=== PATIENT | female | born 1940 | race Caucasian/White ===

== ENCOUNTER → 2017-03-10 | Outpatient (CLI) | payer OTHER ==
[~2017-03-10] MED LIST: Adipex-P37.5 M1 PO; Calcium + Vita1 EACH PO; Crutch1 EACH MISC; FLONASE ALLERG9.9 ML; MULTI VITAMIN1 EACH PO; OMEP20ER PO; Percocet 5-3251 EACH PO; Pravastatin Sod80 MG PO; SERT50 PO; VALA500; Zanaflex4 M1 PO
[2017-03-10 13:50] LABS: BASOPHILS ABSOLUTE AUTO 0.04 K/mm3 (0.00-0.23); BASOPHILS PERCENT AUTO 1 % (0-2); EOSINOPHILS ABSOLUTE AUTO 0.03 K/mm3 (0.00-0.68); EOSINOPHILS PERCENT AUTO 1 % (0-6); Hematocrit 44.7 % (33.0-51.0); Hemoglobin 14.6 g/dL (11.5-16.0); IMMATURE GRAN ABSOLUTE AUTO 0.02 K/mm3 (0.00-0.10); IMMATURE GRAN PERCENT AUTO 0 % (0-1); LYMPHOCYTES ABSOLUTE AUTO 1.78 K/mm3 (0.84-5.20); LYMPHOCYTES PERCENT AUTO 33 % (21-46); MONOCYTES ABSOLUTE AUTO 0.43 K/mm3 (0.16-1.47); MONOCYTES PERCENT AUTO 8 % (4-13); Mean Corpuscular HGB 30.1 pg (26.0-34.0); Mean Corpuscular HGB Conc 32.7 g/dL (31.5-36.5); Mean Corpuscular Volume 92 fL (80-100); Mean Platelet Volume 10.1 fL (9.1-12.4); NEUTROPHILS ABSOLUTE AUTO 3.12 K/mm3 (1.96-9.15); NEUTROPHILS PERCENT AUTO 58 % (41-73); Platelet Count 346 K/mm3 (150-400); RDW Coefficient Variation 15.7 % (11.7-14.2); RDW Standard Deviation 52.2 fL (35.1-46.3); Red Blood Cell Count 4.85 M/mm3 (3.80-5.20); White Blood Cell Count 5.42 K/mm3 (4.00-11.30)
[2017-03-10 14:17] LABS: Alanine Aminotransfer (ALT/SGP 29 U/L (12-78); Albumin, Blood 3.7 g/dL (3.4-5.0); Albumin/Globulin Ratio 1.1 (0.8-1.8); Alk Phos 93 U/L (50-136); Anion Gap 9 mmol/L (6-16); Aspartate Aminotrans (AST/SGOT 18 U/L (12-37); Bilirubin, Total 0.7 mg/dL (0.1-1.0); Blood Urea Nitrogen 15 mg/dL (8-24); Bun/Creatinine Ratio 20.7 (12.0-20.0); CO2, Blood 24 mmol/L (21-32); Calcium, Blood 9.9 mg/dL (8.5-10.1); Chloride, Blood 111 mmol/L (98-108); Creatinine, Blood 0.73 mg/dL (0.40-1.00); Globulin, Blood 3.5 g/dL (2.2-4.0); Glomerular Filtration Rate >60 (60-); Glucose, Blood 109 mg/dL (70-99); Potassium, Blood 3.9 mmol/L (3.5-5.5); Sodium, Blood 144 mmol/L (136-145); Total Protein, Blood 7.2 g/dL (6.4-8.2)
== END ==
LOC: LAB SHORT 13:38
PROVIDERS: Internal Medicine Rheumatology
DX: M05.9 Rheumatoid arthritis with rheumatoid factor, unspecified (principal); Z79.899 Other long term (current) drug therapy
CPT/HCPCS: 80053; 85025

== ENCOUNTER → 2017-12-18 | Outpatient (CLI) | payer OTHER | LOC: LAB SHORT 16:30 → LAB 16:30 | DX: N39.0 Urinary tract infection, site not specified (principal) | CPT/HCPCS: 87077; 87086; 87186 ==

== ENCOUNTER 2020-01-03 12:04 | Day surgery (SDC) | payer OTHER ==
[~2020-01-03] VITALS: Ht 167.6 cm; Wt 87.8 kg
--- NOTE | 2020-01-03 14:35 | NUR ---
01/03/20 [address] REVELES AND DR WEEMS IN TO SEE PT PRIOR TO DISCHARGE. NO FURTHER ORDERS AND PT OK TO BE DISCHARGED HOME.
--- NOTE | 2020-01-03 17:06 | NUR ---
01/03/20 1706 SUZAN ESTRADA PLEASE SEE EMAR SEDATION FLOW SHEET FOR SEDATION TIMES PRIOR TO INCIDENT. PT HAD HIGH BP (182/80) IN PRE OP. DURING CASE, PT'S BP ELEVATED TO 208/93, DR MADE AWARE, WHO ORDERED CONTINUED DOSES OF PROPOFOL. THIS RN CONTINUED WITH BASELINE DOSES OF 20 MG OF PROPOFOL EVERY MINUTE PATIENT WAS MOVING, AND COUGHING/RETCHING. ASKED MD IF COULD GIVE ZOFRAN 4MG, ORDER GRANTED AND ZOFRAN GIVEN. PATIENT CONT TO HAVE HIGH BP (200/93, 210/101, ETC). MADE AWARE AND ORDERED CONTINUED DOSES OF PROPOFOL. O2 SATURATIONS BEGAN TO DROP. IMPLEMENTED JAW THRUST/CHIN LIFT. ASSISTANCE FROM BLANKA KNOTT ALSO IN ROOM. PT WEARING POM MASK WITH 10L PRIOR TO THIS. RICHARD ELLIOTT ASKED BY DR. REVELES TO GO GET DR. SCOTT TO ASSIST WITH AIRWAY. DR. REVELES INSTRUCTED NOT TO CALL OVERHEAD. DR. SCOTT UNAVAILABLE. BLANKA SANTIZO (CHARGE TO ROOM) - AMBU BAG RETRIEVED PT'S SATS CONT TO DROP TO 76% DESPITE HARD JAW THRUST/CHIN LIFT. DR. WEEMS TO BEDSIDE. THIS RN BEGAN AMBU BAGGING PATIENT AND DR. WEEMS ASSIST IN AIRWAY MANAGEMENT. PT RETURN TO 91% AND THEN TO 96-97% ON NON-REBREATHER. PT BREATHING ON OWN. DR. WEEMS CONTINUED WITH SEDATION THROUGHOUT REMAINDER OF UPPER AND LOWER ENDOSCOPY. PLEASE SEE ANESTHESIA SEDATION RECORD.
== END 2020-01-03 14:40 | disposition home or self-care (01) ==
LOC: ORSCSDS 12:04
PROVIDERS: Internal Medicine Gastroenterology
PROC: 0DB58ZX Excision of Esophagus, Via Natural or Artificial Opening Endoscopic, Diagnostic (ICD-10-PCS; principal; 2020-01-03 13:30)
PROC: 0DB98ZX Excision of Duodenum, Via Natural or Artificial Opening Endoscopic, Diagnostic (ICD-10-PCS; principal; 2020-01-03 13:30)
PROC: 0DBM8ZX Excision of Descending Colon, Via Natural or Artificial Opening Endoscopic, Diagnostic (ICD-10-PCS; principal; 2020-01-03 13:30)
PROC: 0DB68ZX Excision of Stomach, Via Natural or Artificial Opening Endoscopic, Diagnostic (ICD-10-PCS; principal; 2020-01-03 13:30)
PROC: 0D758ZZ Dilation of Esophagus, Via Natural or Artificial Opening Endoscopic (ICD-10-PCS; principal; 2020-01-03 13:30)
DX: R13.14 Dysphagia, pharyngoesophageal phase (principal); K21.00 Gastro-esophageal reflux disease with esophagitis, without bleeding; K29.70 Gastritis, unspecified, without bleeding; K44.9 Diaphragmatic hernia without obstruction or gangrene; D12.4 Benign neoplasm of descending colon; Z80.0 Family history of malignant neoplasm of digestive organs; D50.9 Iron deficiency anemia, unspecified; Z86.010 Personal history of colon polyps; Z83.71 Family history of colonic polyps; Z87.891 Personal history of nicotine dependence; Z79.899 Other long term (current) drug therapy
CPT/HCPCS: 87081; 88305; J2405; J2704; J7120

== ENCOUNTER → 2020-02-09 | Outpatient (CLI) | payer OTHER ==
[2020-02-10 10:41] LABS: Stool Occult Bld Immuno 1 Negative (NEGATIVE); Stool Occult Bld Immuno 2 Negative (NEGATIVE)
== END | disposition home or self-care (01) ==
LOC: LAB SHORT 09:00 → LAB 09:00 → LAB FUT 12-27 14:30
PROVIDERS: Internal Medicine Gastroenterology
DX: D50.9 Iron deficiency anemia, unspecified (principal)
CPT/HCPCS: 82274

== ENCOUNTER → 2021-06-18 | Outpatient (CLI) | payer OTHER | END | disposition home or self-care (01) | LOC: LAB SHORT 15:26 → LAB 15:26 | DX: N39.0 Urinary tract infection, site not specified (principal) | CPT/HCPCS: 87077; 87086; 87186 ==

== ENCOUNTER → 2021-09-04 | Outpatient (CLI) | payer OTHER ==
[2021-09-04 16:01] LABS: Percent Saturation 5.9 % (15.0-50.0)
== END | disposition home or self-care (01) ==
LOC: LAB 13:37 → LAB SHORT 13:37
PROVIDERS: Internal Medicine Hematology & Oncology
DX: D64.9 Anemia, unspecified (principal)
CPT/HCPCS: 82728; 83540; 83550

== ENCOUNTER → 2023-03-10 | Outpatient (CLI) | payer OTHER | END | disposition home or self-care (01) | LOC: LAB EV 18:15 → LAB SHORT 18:15 | PROVIDERS: Internal Medicine Hematology & Oncology | DX: D50.0 Iron deficiency anemia secondary to blood loss (chronic) (principal) | CPT/HCPCS: 82728; 83540; 83550 ==

== ENCOUNTER 2023-06-20 10:48 | Day surgery (SDC) | payer OTHER ==
[~2023-06-20] VITALS: Ht 167.6 cm; Wt 84.3 kg
[~2023-06-20 10:48] MED LIST changes: +ATOR20 PO; +FOLI1 PO; +FURO20 PO; +METTREX2.5 PO; +Norco 7.5-3251 EACH; +Norco 7.5-3251 EACH PO; +TIZA4 PO; +VALA500 PO; -Zanaflex4 M1 PO
[2023-06-20 11:34] VITALS: BP 168/85
[2023-06-20] MEDS ORDERED: Lactated Ringer's 1,000 ML IV SCH (11:35)
--- NOTE | 2023-06-20 12:23 | NUR ---
History, Chart, Medications and Allergies reviewed before start of procedure. Pre-Op teaching done. Pt verbalizes understanding. PT REMOVED BOTH CONTACTS FROM EYES AND PLACED IN A TISSUE, INTO THE TRASH. REMOVED UPPER DENTURES ONLY AND PLACED IN DENTURE CUP WITH PT LABEL ON TOP. DENTURE CUP PLACED IN PACU. BELONGINGS PLACED UNDER PT GURNEY.
[2023-06-20 12:34] LABS: Bun/Creatinine Ratio 31.7 (12.0-20.0); Calcium, Blood 9.9 mg/dL (8.5-10.1); Creatinine, Blood 0.57 mg/dL (0.40-1.00); Potassium, Blood 4.2 mmol/L (3.5-5.5)
--- NOTE | 2023-06-20 13:52 | NUR ---
PROCEDURE CANCELLED PER SURGEON. PT D/C. BELONGINGS BAG GIVEN TO PUT. UPPER DENTURES RETURNED TO PT. DAUGHTER CALLED FOR RIDE HOME.
== END 2023-06-20 23:00 | disposition home or self-care (01) ==
LOC: ORSCMMR 10:48 → ORD 12:30 → ORSCMMR 12:45 → ORD 12:45 → ORSCMMR 23:00
PROVIDERS: Specialist
DX: K44.9 Diaphragmatic hernia without obstruction or gangrene (principal); K21.9 Gastro-esophageal reflux disease without esophagitis; Z53.9 Procedure and treatment not carried out, unspecified reason
CPT/HCPCS: 80048; 93005; 93010; J7120

== ENCOUNTER → 2023-10-31 | Outpatient (CLI) | payer OTHER ==
[2023-10-31 17:12] LABS: Hematocrit 33.7 % (33.0-51.0); Hemoglobin 9.9 g/dL (11.5-16.0); Mean Corpuscular HGB 23.5 pg (26.0-34.0); Mean Corpuscular HGB Conc 29.4 g/dL (31.5-36.5); Mean Corpuscular Volume 80 fL (80-100); Mean Platelet Volume 10.8 fL (9.1-12.4); Platelet Count 409 K/mm3 (150-400); RDW Coefficient Variation 26.5 % (11.7-14.2); RDW Standard Deviation 74.6 fL (35.1-46.3); Red Blood Cell Count 4.21 M/mm3 (3.80-5.20); White Blood Cell Count 5.22 K/mm3 (4.00-11.30)
[2023-10-31 17:53] LABS: BASOPHILS PERCENT MAN 0 % (0-2); EOSINOPHILS PERCENT MAN 4 % (0-6); LYMPHOCYTES ABSOLUTE MAN 0.93 K/mm3 (0.84-5.20); LYMPHOCYTES PERCENT MAN 18 % (21-46); MONOCYTES ABSOLUTE MAN 0.52 K/mm3 (0.16-1.47); MONOCYTES PERCENT MAN 10 % (4-13); NEUTROPHILS ABSOLUTE MAN 3.54 K/mm3 (1.96-9.15); SEG NEUTROPHILS PERCENT MAN 68 % (41-73); TOTAL CELLS COUNTED 100
== END ==
LOC: LAB SHORT 15:34 → LAB 15:34
PROVIDERS: Internal Medicine Hematology & Oncology
DX: D64.9 Anemia, unspecified (principal)
CPT/HCPCS: 85025

== ENCOUNTER → 2024-01-22 | Outpatient (CLI) | payer OTHER ==
[2024-01-22 18:06] LABS: BASOPHILS ABSOLUTE AUTO 0.04 K/mm3 (0.00-0.23); BASOPHILS PERCENT AUTO 1 % (0-2); EOSINOPHILS ABSOLUTE AUTO 0.09 K/mm3 (0.00-0.68); EOSINOPHILS PERCENT AUTO 2 % (0-6); Hematocrit 41.6 % (33.0-51.0); Hemoglobin 12.9 g/dL (11.5-16.0); IMMATURE GRAN ABSOLUTE AUTO 0.01 K/mm3 (0.00-0.10); IMMATURE GRAN PERCENT AUTO 0 % (0-1); LYMPHOCYTES ABSOLUTE AUTO 1.48 K/mm3 (0.84-5.20); LYMPHOCYTES PERCENT AUTO 31 % (21-46); MONOCYTES ABSOLUTE AUTO 0.37 K/mm3 (0.16-1.47); MONOCYTES PERCENT AUTO 8 % (4-13); Mean Corpuscular HGB 27.2 pg (26.0-34.0); Mean Corpuscular Volume 88 fL (80-100); Mean Platelet Volume 10.6 fL (9.1-12.4); NEUTROPHILS ABSOLUTE AUTO 2.82 K/mm3 (1.96-9.15); NEUTROPHILS PERCENT AUTO 59 % (41-73); Platelet Count 232 K/mm3 (150-400); RDW Coefficient Variation 25.6 % (11.7-14.2); RDW Standard Deviation 79.2 fL (35.1-46.3); Red Blood Cell Count 4.75 M/mm3 (3.80-5.20); White Blood Cell Count 4.81 K/mm3 (4.00-11.30)
== END | disposition home or self-care (01) ==
LOC: LAB SHORT 17:40 → LAB 17:40
PROVIDERS: Internal Medicine Hematology & Oncology
DX: E61.1 Iron deficiency (principal)
CPT/HCPCS: 82728; 83540; 83550; 85025

== ENCOUNTER 2024-03-05 03:18 | Day surgery (SDC) | payer OTHER ==
[~2024-03-05 03:18] MED LIST changes: +Zoledronic Acid 4 MG in NS 100 ML IV SCH
[2024-03-05] MEDS ORDERED: ZOLEDRONIC ACID/MANNITOL-WATER 100 ML IV SCH (06:00)
[2024-03-05 11:07] VITALS: BP 173/89
== END 2024-03-05 11:52 | disposition home or self-care (01) ==
LOC: ATC 03:18
DX: M81.0 Age-related osteoporosis without current pathological fracture (principal); M05.79 Rheumatoid arthritis with rheumatoid factor of multiple sites without organ or systems involvement; Z88.0 Allergy status to penicillin; Z88.2 Allergy status to sulfonamides
CPT/HCPCS: 96365